=== PATIENT | male | born 2005 | race African-American/Black ===

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

== ENCOUNTER 2025-01-18 16:53 | Emergency (ER) | payer BC, SELFPAY ==
--- OUTSIDE RECORDS SUMMARY | 2017-09-26 05:10 | XMS_ITS | Encounter Summary ---
Author Organization [facility] Address [address] [place] [address] Care Team Providers Care Practice Architect Name Role Phone Dali Maddox MD Primary Care Provider + [phone] Encounter Details Date Type Department Care Team (Late st Contact Info) Description 09/26/2017 6:10 AM CDT Hospital Encounter [place] [facility] (File Room) [address] [address] Den Calero MD [address] [place], [place] [address] Social History Tobacco Use Types Packs/Day Years Used Date Smoking Tobacco: Never Smokeless Tobacco: Never Alcohol Use Standard Drinks/Week Comments Not Currently 0 (1 standard drink = 0.6 oz pur e alcohol) rarely Social Connection and Isolat ion Panel [NHANES] Answer Date Recorded In a typical week, how many times do you talk on the phone with family, friends, or neighbors? More than three times a week 04/08/2020 Frequency of Social Gatherin gs with Friends and Family Not on file 04/08/2020 Attends Jainism Services Not on file 04/08 Active Member of Clubs or Organizations Not on f ile 04/08/2020 Attends Club or Organization Meetings Not on jose l e 04/08/2020 Marital Status Not on file 04/08/2020 PHQ-2 Answer Date Recorded PHQ-2 Score 0 09/23/2023 [facility] [place] of Occupat ional Health - Occupational Stress Questionnaire Answer Date Recorded Do you feel stress - tense, restless, nervous, or anxious, or unable to sleep at night because your mind is troubled all the time - these days? Not at all 04/08/2020 Exercise Vital Sign Answer Date Recorde d On average, how many days pe r week do you engage in moderate to strenuous exercise (like a brisk walk)? 3 days 04/08/2020 On average, how many minutes do you engage in exercise at this level? 30 min 04/08/2020 Sex and Gender Information Value Date Recorded Sex Assigned at Male 06/01/2020 7:22 AM CDT Gender Identity Male 06/01/2020 7:21 AM CDT Sexual Orientation Choose not to disclose 2020 7:21 AM CDT COVID-19 Exposure Response Date Recorded In the last 10 days, have yo u been in contact with someone who was confirmed or suspected to have Coronavirus/COVID-19? No / Unsure 07/30/2022 2:53 PM CDT documented as of this encounter Plan of Treatment Not on file documented as of this encounter Visit Diagnoses Not on filedocumented in this encounter Care Teams Practice Architect Relationship Specialty Start Date End Date Dali Maddox MD [address] [place] [address] PCP - General Family Practice 01/13/14 07/20/23 documented as of this encounter
--- OUTSIDE RECORDS SUMMARY | 2017-09-26 05:10 | XMS_ITS | Encounter Summary ---
Author Organization [facility] Address [address] [place] [address] Care Team Providers Care Drafter Patent Name Role Phone Dali Maddox MD Primary Care Provider + [phone] Encounter Details Date Type Department Care Team (Late st Contact Info) Description 09/26/2017 6:10 AM CDT Hospital Encounter [place] [facility] (File Room) [address] [address] Den Calero MD [address] [place], [place] [address] Social History Tobacco Use Types Packs/Day Years [...] and Family Not on file 04/08/2020 Attends Voodoo Services Not on file 04/08 Active Member of Clubs or Organizations Not on f ile 04/08/2020 Attends Club or Organization Meetings Not on jose l e 04/08/2020 Marital Status Not on file 04/08/2020 PHQ-2 Answer Date Recorded PHQ-2 Score 0 09/23/2023 [facility] [place] of Occupat ional Health - Occupational Stress [...] on filedocumented in this encounter Care Teams Drafter Patent Relationship Specialty Start Date End Date Dali Maddox MD [address] [place] [address] PCP - General Family Practice 01/13/14 07/20/23 documented as of this encounter
--- NOTE | ~2025-01-18 | XR_ITS ---
EXAMINATION: XR chest 1V DATE: 01/18/2025 17:53 INDICATION: Chest pain TECHNIQUE: A single frontal view of the chest was obtained. COMPARISON: None. FINDINGS: Heart size is normal. Lungs are clear of acute processes. IMPRESSION: 1. No acute findings in the limited portable AP chest. Reviewed, dictated and finalized at location T. ATAL NURSE
--- OUTSIDE RECORDS SUMMARY | 2025-01-18 15:30 | XMS_ITS | Encounter Summary ---
Author Organization [facility] Address [address] [place] [address] Care Team Providers Care Pneumatic Tool Repairer Name Role Phone Unknown, Notinfile Primary Care Provider Unavail able Reason for Referral * Consultation (Routine) - Pending Review Specialty Diagnoses / Procedures [facility]erred To Contact Cardiology Diagnoses Other chest pain Lizzy Figueredo NP [address] [facility] [address] [place] [address] Phone: tel: [facility] Cardiology at [address] [place] [address] Phone: tel: fax: Referral ID Status Reason Start Date Expiration Date Visits Requested Visits Authorized [id number] Pending Review Specialty Services Required 01/18/2025 02/17/2026 1 1 Question Answer Please select the performing region: [facility] [[id number]] Please select the performing department: [facility] [[id number]] # of visits: 1 LATHER * Cardiology (Routine) - Authorized Specialty Diagnoses / Procedures Referred By Contac t Referred To Contact Diagnoses Other chest pain Procedures ECG 12 lead Lizzy Figueredo NP [facility] [facility] [address] [place] [address] Phone: tel: [facility] Referral ID Status Reason Start Date Expiration Date V isits Requested Visits Authorized [id number] Authorized 01/18/2025 02/17/2026 1 1 LATHER Reason for Visit * Reason Comments Hiccups Consistent hiccups x 1 month starting more recently chest has been starting to hurt with them and earlier this morning had gotten dizzy and nausea from the hiccups Encounter Details Date Type Department Care Team (Late st Contact Info) Description 01/18/2025 3:30 PM WOOD LATHER Office Visit [facility] Convenient Care at [place] [address] [place] [address] Lizzy Figueredo NP [address] [facility] [address] [place] [address] Hiccups (Primary Dx); Other chest pain; Dizziness Social History Tobacco Use Types Packs/Day Years Used Date Smoking Tobacco: Never Assessed Sex and Gender Information Value Date Recorded Sex Assigned at Not on file Legal Sex Male 8:00 AM WOOD LATHER Gender Identity Not on file Sexual Orientation Not on file documented as of this encounter Last Filed Vital Signs Vital Sign Reading Time Taken Comments Blood Pressure 139/84 01/18/2025 3:27 PM WOOD LATHER Pulse 83 01/18/2025 3:27 PM WOOD LATHER Temperature 37.1 C (98.8 F) 01/18/2025 3:27 PM WOOD LATHER Respiratory Rate 18 01/18/2025 3:27 PM WOOD LATHER Oxygen Saturation 98% 01/18/2025 3:27 PM WOOD LATHER Inhaled Oxygen Concentration - - Weight 94.8 kg (209 lb) 01/18/2025 3:27 PM WOOD LATHER Height 190.5 cm (6' 3) 01/18/2025 3:27 PM WOOD LATHER Body Mass Index 26.12 01/18/2025 3:27 PM WOOD LATHER documented in this encounter Patient Instructions * Patient Instructions* Lizzy Figueredo NP - 01/18/2025 3:30 PM WOOD LATHER --Sending patient to ER for further cardiac workup given symptoms of left-sided chest pain and dizziness. LATHER * Attachments The following attachments cannot be sent through Care Everywhere. * Hiccups (General Information) (Green[place]ic) documented in this encounter Progress Notes * Lizzy Figueredo NP - 01/18/2025 3:30 PM CST Images from the original note were not included. Subjective/Objective Patient ID: Jorgito Breen is a 19 y.o. male. This patient has verbally consented to recording this visit in order to utilize AI technology in generating this note. Chief Complaint Hiccups (Consistent hiccups x 1 month starting more recently chest has been starting to hurt with them and earlier this morning had gotten dizzy and nausea from the hiccups ) History of Present Illness Jorgito Breen is a 19 year old male who presents with persistent hiccups, chest pain, and dizziness. He has been experiencing hiccups for the past month, occurring daily and sometimes several times per hour. The hiccups are described as sometimes being 'nonstop'. This is the first time he has experienced such persistent hiccups. In the past week, he has developed left sided chest pain that radiates to his back. The chest pain occurs both with and without hiccups. There have been no recent injuries, falls, or accidents that could have contributed to these symptoms. He has a history of a slower heart rate with frequent chestpains, evaluated last year with no serious condition identified. Today, he began experiencing dizziness, described as the sensation of the environment spinning. He also has a headache that started with the dizziness. He feels hot and has a sensation of possibly passing out, though he has not actually fainted. No vision changes, vomiting, or seizures. Review of Systems All other systems reviewed and are negative. Physical Exam Physical Exam Vitals reviewed. Constitutional: General: He is not in acute distress. Appearance: Normal appearance. He is ill-appearing. HENT: Head: Normocephalic. Mouth/Throat: Lips: [place]. Cardiovascular: Rate and Rhythm: Normal rate and regular rhythm. Heart sounds: Normal heart sounds. No murmur heard. Pulmonary: Effort: Pulmonary effort is normal. Breath sounds: Normal breath sounds. Skin: General: Skin is warm. Neurological: Mental Status: He is alert and oriented to person, place, and time. Psychiatric: Mood and Affect: Mood normal. Vitals: 01/18/25 1527 BP: 139/84 Pulse: 83 Resp: 18 Temp: 37.1 ??C (98.8 ??F) SpO2: 98% Weight: 94.8 kg (209 lb) Height: 190.5 cm (6' 3) No past medical history on file. No current outpatient medications on file. Allergies Allergen Reactions Grass Pollen Other (See comments) Peanut Other (See comments) Social History Tobacco Use Smoking status: None Smokeless tobacco: None Substance and Sexual Activity Drug use: None Sexual activity: None Alcohol Use: Not on file History reviewed. No pertinent surgical history. Procedures Assessment/Plan 1. Hiccups (Primary) 2. Other chest pain - ECG 12 lead - Ambulatory referral to Cardiology; Future 3. Dizziness Results EKG read by cardiology: Early repolarization within normal limits Assessment & Plan Persistent hiccups with associated chest pain, dizziness, and headache Persistent hiccups for one month with recent chest pain, dizziness, and headache. Differential includes cardiac etiology; further evaluation needed. - Performed EKG to assess baseline cardiac function. - Referred to ER for comprehensive evaluation, including blood work and further diagnostic testing. - Advised cooling measures to alleviate dizziness. - Provided water to maintain hydration. Education --Sending patient to ER for further cardiac workup given symptoms of left-sided chest pain and dizziness. Disposition Treatment plan including expectations, follow up, and return precautions discussed with patient/parent, verbalizes understanding. Medication dosage, use, and potential adverse reactions discussed with patient/parent. Advised to follow up with PCP if symptoms do not resolve as expected or sooner if condition worsens. Signs/symptoms warranting ER evaluation reviewed. Patient and/or guardian was given an opportunity to ask questions, questions answered. Lizzy Figueredo NP This office note has been partially dictated using [employer] software, and as a result portions of the record may have been created with this software. Occasional wrong-word or '[id number]' substitutions may have occurred due to the inherent limitations of voice recognition software. Read the chartcarefully and recognize, using context, where substitutions have occurred. LATHER documented in this encounter Plan of Treatment Scheduled Referrals Name Type Priority Associated Diagnoses Order Schedule Ambulatory referral to Cardiology Outpatient Referral Routine Other chest pain Expected: 02/01/2025 (Approximate), Expires: 01/18/2026 documented as of this encounter Procedures Procedure Name Priority Date/Time Associated Diagnosis Comments ECG 12-LEAD Routine 01/18/2025 3:46 PM WOOD LATHER Other chest pain documented in this encounter Results * ECG 12 lead (01/18/2025 3:46 PM WOOD LATHER) us Lizzy Figueredo FIELD AUTOMOBILE ADJUSTER ECG ORDERABLES Final Result documented in this encounter Visit Diagnoses Diagnosis Hiccups- Primary Other chest pain Dizziness Dizziness and giddiness documented in this encounter Care Teams Pneumatic Tool Repairer Relationship Specialty Start Date End Date Unknown, Notinfile PCP - General 03/04/24 documented as of this encounter
--- OUTSIDE RECORDS SUMMARY | 2025-01-18 15:30 | XMS_ITS | Encounter Summary ---
Author Organization [facility] Address [address] [place] [address] Care Team Providers Care Scratch Finisher Name Role Phone Unknown, Notinfile Primary Care Provider Unavail able Reason for Referral * Consultation (Routine) - Pending Review Specialty Diagnoses / Procedures [facility] Referred To Contact Cardiology Diagnoses Other chest pain Lizzy Figueredo NP [address] [facility] [address] [place] [address] Phone: tel: [facility] Cardiology at [address] [place] [address] Phone: tel: fax: Referral ID Status Reason Start Date Expiration Date Visits Requested Visits Authorized [id number] Pending Review Specialty Services Required 01/18/2025 02/17/2026 1 1 Question Answer Please select the performing region: [facility] [[id number]] Please select the performing department: [facility] [[id number]] # of visits: 1 KER PRODUCT DESIGN * Cardiology (Routine) - Authorized Specialty Diagnoses / Procedures Referred By Contac t Referred To Contact Diagnoses Other chest pain Procedures ECG 12 lead Lizzy Figueredo NP [facility] [address] [place] [address] Phone: tel: [facility] Referral ID Status Reason Start Date Expiration Date V isits Requested Visits Authorized [id number] Authorized 01/18/2025 02/17/2026 1 1 KER PRODUCT DESIGN Reason for Visit * Reason Comments Hiccups Consistent hiccups x 1 month starting more recently chest has been starting to hurt with them and earlier this morning had gotten dizzy and nausea from the hiccups Encounter Details Date Type Department Care Team (Late st Contact Info) Description 01/18/2025 3:30 PM CHECKER PRODUCT DESIGN Office Visit [facility] Convenient Care at [place] [id number] [place] [address] Lizzy Figueredo NP [address] [facility] [address] [place] [address] Hiccups (Primary Dx); Other chest pain; Dizziness Social History Tobacco Use Types Packs/Day Years Used Date Smoking Tobacco: Never Assessed Sex and Gender Information Value Date Recorded Sex Assigned at Not on file Legal Sex Male 8:00 AM CHECKER PRODUCT DESIGN Gender Identity Not on file Sexual Orientation Not on file documented as of this encounter Last Filed Vital Signs Vital Sign Reading Time Taken Comments Blood Pressure 139/84 01/18/2025 3:27 PM CHECKER PRODUCT DESIGN Pulse 83 01/18/2025 3:27 PM CHECKER PRODUCT DESIGN Temperature 37.1 C (98.8 F) 01/18/2025 3:27 PM CHECKER PRODUCT DESIGN Respiratory Rate 18 01/18/2025 3:27 PM CHECKER PRODUCT DESIGN Oxygen Saturation 98% 01/18/2025 3:27 PM CHECKER PRODUCT DESIGN Inhaled Oxygen Concentration - - Weight 94.8 kg (209 lb) 01/18/2025 3:27 PM CHECKER PRODUCT DESIGN Height 190.5 cm (6' 3) 01/18/2025 3:27 PM CHECKER PRODUCT DESIGN Body Mass Index 26.12 01/18/2025 3:27 PM CHECKER PRODUCT DESIGN documented in this encounter Patient Instructions * Patient Instructions* Lizzy Figueredo NP - 01/18/2025 3:30 PM CHECKER PRODUCT DESIGN --Sending patient to ER for further cardiac workup given symptoms of left-sided chest pain and dizziness. KER PRODUCT DESIGN * Attachments The following attachments cannot be sent through Care Everywhere. * Hiccups (General Information) (Bengali) documented in this encounter Progress Notes * [...] is ill-appearing. HENT: Head: Normocephalic. Mouth/Throat: Lips: [place]. Cardiovascular: Rate and Rhythm: Normal rate and [...] office note has been partially dictated using [employer] software, and as a result portions of the record may have been created with this software. Occasional wrong-word or '[id number]' substitutions may have occurred due to the inherent limitations of voice recognition software. Read the chartcarefully and recognize, using context, where substitutions have occurred. KER PRODUCT DESIGN documented in this encounter Plan of Treatment Scheduled Referrals Name Type Priority Associated Diagnoses Order Schedule Ambulatory referral to Cardiology Outpatient Referral Routine Other chest pain Expected: 02/01/2025 (Approximate), Expires: 01/18/2026 documented as of this encounter Procedures Procedure Name Priority Date/Time Associated Diagnosis Comments ECG 12-LEAD Routine 01/18/2025 3:46 PM CHECKER PRODUCT DESIGN Other chest pain documented in this encounter Results * ECG 12 lead (01/18/2025 3:46 PM CHECKER PRODUCT DESIGN) us Lizzy Figueredo DESK SERGEANT ECG ORDERABLES Final Result documented in this encounter Visit Diagnoses Diagnosis Hiccups- Primary Other chest pain Dizziness Dizziness and giddiness documented in this encounter Care Teams Scratch Finisher Relationship Specialty Start Date End Date Unknown, Notinfile PCP - General 03/04/24 documented as of this encounter
--- NOTE | 2025-01-18 17:22 | ECG_ITS ---
Test Date: 2025-01-18 17:36:57 Measurements Intervals [place] Rate: 76 P: -4 AL: 152 QRS: -19 QRSD: 86 T: 8 QT: 321 QTc: 362 Interpretive Statements SINUS RHYTHM WITH SINUS ARRHYTHMIA ST ELEVATION IN ANTEROLAT/HIGH LAT LEADS- PROBABLY EARLY REPOLARIZATION BASELINE ARTIFACT- V3 BORDERLINE ECG Compared to ECG 03/04/2024 15:23:15 HEART RATE HAS INCREASED Electronically Signed On 01-18-2025 19:58:33 AVID EDITOR by Humza Ochoa D.O.
[2025-01-18 17:34] VITALS: BP 143/101; PULSE 78; RESP 20; TEMP 36.4; O2SAT 100
[2025-01-18 17:37] VITALS: O2SAT 100
--- OUTSIDE RECORDS SUMMARY | 2025-01-18 19:49 | XMS_ITS | Encounter Summary ---
Author Organization [facility] Address [address] [place] [address] Care Team Providers Care Practice Support Specialist Name Role Phone Dali Maddox MD Primary Care Provider + [phone] Yelena Mccoy APN Primary Care Provider + [phone] Encounter Details Date Type Department Care Team (Late st Contact Info) Description 02/02/2019 Scan [facility] Medical Records Department - [address], [address] Unknown Md, Referring <No scans attached> Social History Tobacco Use Types Packs/Day Years Used Date Smoking Tobacco: Never Smokeless Tobacco: Never Alcohol Use Standard Drinks/Week Comments No 0 (1 standard drink = 0.6 oz pur e alcohol) Sex and Gender Information Value Date Recorded Sex Assigned at Male 06/01/2020 7:22 AM CDT Gender Identity Male 06/01/2020 7:21 AM CDT Sexual Orientation Choose not to disclose 2020 7:21 AM CDT documented as of this encounter Plan of Treatment Not on file documented as of this encounter Visit Diagnoses Not on filedocumented in this encounter Care Teams Practice Support Specialist Relationship Specialty Start Date End Date Dali Maddox MD [address] [place] [address] PCP - General Family Practice 01/13/14 07/20/23 Yelena Mccoy APN [address] [place] [address] PCP - General Family Practice 07/21/23 documented as of this encounter
--- OUTSIDE RECORDS SUMMARY | 2025-01-18 19:49 | XMS_ITS | Clinical Summary ---
Author Organization [facility] Address [address] [place] [address] Care Team Providers Care Supervisor Machine Setter Name Role Phone Yelena Mccoy APN Primary Care Provider + [phone] Source Comments You are receiving this document as you are listed as the PCP, follow-upprovider, or the patient hasbeen referred to you for consultation. This is incompliance with [facility] Transitions of Care Requirement. Note: Specific treatmentrecords and notes about services for mental health, developmental disabilities,alcoholism, drug dependence, or substance abuse, you will need to contact theMedical Records Department at [phone] and complete a separate Release ofAuthorization form. They are also available to answer other questions.[facility] Allergies Active Allergy Reactions Criticality Noted Date Comments Peanut-Containing Drug Products 04/2013 Environmental 07/08/2014 Medications * Please verify all current medications with the patient. Medication Sig Dispensed Refills Start Date End Date Status fluticasone (FLONASE) 50 MCG/ACT nasal sprayIndications:Acu te seasonal allergic rhinitis place 2 Sprays into both nostrils daily. 1 g 07/30/2022 Active Additional Information Patient not taking.Reported on 07/12/2023 Active Problems Problem Noted Date Diagnosed Date Throat pain in adult 07/30/2022 Tibial plateau fracture, right, closed, initial encounter 11/16/2017 Well child check 06/20/2016 Learning difficulty 08/26/2015 Seasonal allergies Immunizations Name Administration Dates Next Due Covid-19 (Pfizer) Dilution R equired (Purple Cap) 02/25/2021,06/23/2020,06/02/2020 DTaP (Daptacel) < 7 yr old 2004 DTaP (Daptacel) <7 yrs (Inactive) 2008,03/09/2006,2004,10/14,2004 DTaP (Unspecified) 07/19/2008, 7,2004,10/14 HIB (Unspecified) 03/09/2006, 5,2004,10/14,2004 HPV9 Valent (Gardasil 9) 06/26/2017,12/24/2016 Hep A (Pediatrics) 08/25/2015,07/28/2009 Hep A (Unspecified) 07/28/2009 Hepatitis B (Unspecified) 04/05/2005,2004, 2004 Hepatitis B Peds & Adolescents 04/05/2005,2004,2004 IPV (Polio) 07/28/2009, 7,2004,09/07 Influenza (Flulaval) Quadriv alent 0.5 mL (Vial) 12/24/2016 Influenza (Flumist) Quad Kalpana e Intranasal (2-17 yrs) 01/05/2015 Influenza (Fluzone / Fluarix / Flulaval / Afluria) Quad 0.5mL >6mon 02/09/2022,12/06/2020,12/02/2015 Influenza (Fluzone) Quad 0.5mL 02/02/2019,2017 Influenza (Unspecified) 01/13/2014 MMR 07/19/2008,09/10/2005 Meningococcal B OMV (Bexsero) 02/09/2022 Meningococcal MCV4P (Menactra) 12/06/2020,2015 Pneumococcal Conjugate PCV7 09/10/2005,1 2004,2004,09/07 Tdap (Boostrix) 08/25/2015 Varicella 12/02/2015,06/07/2005 Family History Medical History Relation Comments No Known Problems Father Stroke Maternal Grandfather No Known Problems Maternal Grandmother anxiety Maternal Uncle 1 cardiac, required ablasian i n heart for constant syncope in adolescence Maternal Uncle 1 Cancer Maternal Uncle 2 No Known Problems Mother Diabetes Paternal Grandfather [place] Paternal Grandfather No Known Problems Paternal Grandmother Relation Status Comments Father Alive Maternal Grandfather 79, fr om complications from stroke 10 years prior Maternal Grandmother Alive Maternal Uncle 1 Alive Maternal Uncle 2 Alive Brain Cancer Mother Alive Paternal Grandfather 77, fr om [place] Paternal Grandmother Alive Sister Alive Social History Tobacco Use Types Packs/Day Years Used Date Smoking Tobacco: Never Smokeless Tobacco: Never Tobacco Cessation:Counseling Given: Not Answered Alcohol Use Standard Drinks/Week Comments Not Currently [...] and Family Not on file 04/08/2020 Attends Synagogue Services Not on file 04/08 Active Member of Clubs or Organizations Not on f ile 04/08/2020 Attends Club or Organization Meetings Not on jose l e 04/08/2020 Marital Status Not on file 04/08/2020 PHQ-2 Answer Date Recorded PHQ-2 Score 0 09/23/2023 [facility] Occupat ional Health - Occupational Stress [...] not to disclose 2020 7:21 AM CDT Last Filed Vital Signs Vital Sign Reading Time Taken Comments Blood Pressure 106/68 09/23/2023 1:05 PM CDT Pulse 62 09/23/2023 1:05 PM CDT Temperature 36.6 C (97.8 F) 09/23/2023 1:05 PM CDT Respiratory Rate 18 09/23/2023 1:05 PM CDT Oxygen Saturation 98% 09/23/2023 1:05 PM CDT Inhaled Oxygen Concentration - - Weight 95.3 kg (210 lb) 09/23/2023 1:05 PM CDT Height 188 cm (6' 2) 09/23/2023 1:05 PM CDT Body Mass Index 26.96 09/23/2023 1:05 PM CDT Plan of Treatment Health Maintenance Due Date Last Done Comments HIV SCREEN 06/01/2019 CHOL SCREENING: EVERY 5 YEARS 2024 ANNUAL BMI COUNSELING 09/22/2024 09/23/2023 , 02/09/2022, 12/06/2020, Additional history exists ANNUAL DEPRESSION SCREENING,ADULT 09/22/2024 09/23/2023, 02/09/2022, 12/06/2020, Additional history exists Covid-19 Vaccine ( season) 2024 02/25/2021, 06/23/2020, 06/02/2020 INFLUENZA VACCINE (#1) 2024 , 12/06/2020, 02/02/2019, Additional history exists ADULT VACCINE: TETANUS( TD) BOOSTER,EVERY 10 YR 08/24/2025 08/25/2015, 07/19/2008, 03/09/2006, Additional history exists ADULT VACCINE: SHINGRIX (1 of 2) 2054 PNEUMOCOCCAL VACCINE Aged Out 09/10/2005, 02/07/2005, 2004, Additional history exists No longer eligible based on patient's age to complete this topic VACCINE: HPV (CDC RULES) Completed 06/26/2017, 12/12 PEDS RSV < 20 MON Aged Out No longer eligible based on patient's age to complete this topic Care Teams Supervisor Machine Setter Relationship Specialty Start Date End Date Yelena Mccoy APN [address] [facility] [place] [address] PCP - General Family Practice 07/21/23
--- OUTSIDE RECORDS SUMMARY | 2025-01-18 19:49 | XMS_ITS | Encounter Summary ---
Author Organization [facility] Address [address] [place] [address] Care Team Providers Care Inorganic Chemistry Teacher Name Role Phone Dali Maddox MD Primary Care Provider + [phone] Yelena Mccoy APN Primary Care Provider + [phone] Encounter Details Date Type Department Care Team (Late st Contact Info) Description 11/28/2015 Scan [facility] [address] [facility], [address]nd [place] [phone] Dali Maddox MD [address] [place] [address] <No scans attached> Social History Tobacco Use Types Packs/Day Years Used Date Smoking Tobacco: Never Alcohol Use Standard Drinks/Week Comments [...] on filedocumented in this encounter Care Teams Inorganic Chemistry Teacher Relationship Specialty Start Date End Date Dali Maddox MD [address] [place] [address] PCP - General Family Practice 01/13/14 07/20/23 Yelena Mccoy APN [address] [place] [address] PCP - General Family Practice 07/21/23 documented as of this encounter
--- OUTSIDE RECORDS SUMMARY | 2025-01-18 19:50 | XMS_ITS | Clinical Summary ---
Author Organization [facility] Address [address] [place] [address] Care Team Providers Care Supervisor Felting Name Role Phone Pcp-Interviewed, Non [place] Pcp [facility] Primar y Care Provider Allergies Active Allergy Reactions Criticality Noted Date Comments Peanut Rash, not Hives/Urticaria 06/17/2012 Medications albuterol 90 mcg/actuation INHL Aero inhaler inhale 1-2 Puffs by mouth every 4 hours as needed for Wheezing. With aerochamber 1 Inhaler 0 3 Active Social History Tobacco Use Types Packs/Day Years Used Date Smoking Tobacco: Never Assessed Sex and Gender Information Value Date Recorded Sex Assigned at Not on file Legal Sex Male 10:20 PM CDT Gender Identity Not on file Sexual Orientation Not on file Last Filed Vital Signs Vital Sign Reading Time Taken Comments Blood Pressure - - Pulse 89 06/17/2012 10:26 PM CDT Temperature 37 C (98.6 F) 06/17/2012 10:26 PM CDT Respiratory Rate 20 06/17/2012 10:26 PM CDT Oxygen Saturation 95% 06/17/2012 10:26 PM CDT Inhaled Oxygen Concentration - - Weight 30.8 kg (68 lb) 06/17/2012 10:26 PM CDT Height - - Body Mass Index - - Plan of Treatment Health Maintenance Due Date Last Done Comments HIV Screening 2004 Hepatitis C Screening 2004 DTaP,Tdap and Td Vaccines (1 - Tdap) 06/01/2011 HPV Vaccines (1 - Male 3-dos e series) 06/01/2019 Meningococcal B (1 of 2 - Standard) 2020 COVID-19 Vaccine (1 - 2024-2 6 season) 2024 Influenza Vaccine (#1) 2024 Pneumococcal 7-64 Aged Out No longer eligible based on patient's age to complete this topic RSV Vaccine (Pediatric) Aged Out No l onger eligible based on patient's age to complete this topic Insurance quick[employer] quick[employer] Care Teams Supervisor Felting Relationship Specialty Start Date End Date Pcp-Interviewed, Non [place] Pcp [facility] [address] [facility] [place] [address] PCP - General 06/17/12
--- OUTSIDE RECORDS SUMMARY | 2025-01-18 19:50 | XMS_ITS | Encounter Summary ---
Author Organization [facility] Address [address] [place] [address] Care Team Providers Care Manufacturer'S Service Representative Name Role Phone Dali Maddox MD Primary Care Provider + [phone] Yelena Mccoy APN Primary Care Provider + [phone] Encounter Details Date Type Department Care Team (Late st Contact Info) Description 02/09/2022 Abstract [facility] [address] [facility], [address]nd [place] [phone] Dali Maddox MD [address] [place], [place] [id number] Social History Tobacco Use Types Packs/Day Years Used Date Smoking Tobacco: Never Smokeless Tobacco: Never Alcohol Use Standard Drinks/Week Comments No 0 (1 standard drink = 0.6 oz pur e alcohol) Social Connection and Isolat ion Panel [NHANES] Answer Date Recorded In a typical week, how many times do you talk on the phone with family, friends, or neighbors? More than three times a week 04/08/2020 Frequency of Social Gatherin gs with Friends and Family Not on file 04/08/2020 Attends Sabianist Services Not on file 04/08 Active Member of Clubs or Organizations Not on f ile 04/08/2020 Attends Club or Organization Meetings Not on jose l e 04/08/2020 Marital Status Not on file 04/08/2020 [facility] of Occupat ional Health - Occupational Stress [...] suspected to have Coronavirus/COVID-19? No / Unsure 02/09/2022 1:57 PM CASTING MACHINE OPERATOR documented as of this encounter Plan of Treatment Not on file documented as of this encounter Visit Diagnoses Not on filedocumented in this encounter Care Teams Manufacturer'S Service Representative Relationship Specialty Start Date End Date Dali Maddox MD [address] [place], [place] [address] PCP - General Family Practice 01/13/14 07/20/23 Yelena Mccoy APN [address] [place] [address] PCP - General Family Practice 07/21/23 documented as of this encounter
--- OUTSIDE RECORDS SUMMARY | 2025-01-18 19:50 | XMS_ITS | Clinical Summary ---
Author Organization [address] [address] Care Team Providers Care Firer Low Pressure Name Role Phone Unknown, Notinfile Primary Care Provider Unavail able Allergies Active Allergy Reactions Criticality Noted Date Comments Grass Pollen Other (See comments) Low 07/08/2014 Peanut Other (See comments) Low 01/13/2014 Medications No known medications Active Problems No known active problems Encounters Date Type Department Care Team Description 01/18/2025 3:30 PM BROADCAST OPERATIONS MANAGER Office Visit [facility] at [address] [address] Lizzy Figueredo NP Hiccups (Primary Dx); Other chest pain; Dizziness from Last 3 Months Social History Tobacco Use Types Packs/Day Years Used Date Smoking Tobacco: Never Assessed Sex and Gender Information Value Date Recorded Sex Assigned at Not on file Legal Sex Male 8:00 AM BROADCAST OPERATIONS MANAGER Gender Identity Not on file Sexual Orientation Not on file Last Filed Vital Signs Vital Sign Reading Time Taken Comments Blood Pressure 139/84 01/18/2025 3:27 PM BROADCAST OPERATIONS MANAGER Pulse 83 01/18/2025 3:27 PM BROADCAST OPERATIONS MANAGER Temperature 37.1 C (98.8 F) 01/18/2025 3:27 PM BROADCAST OPERATIONS MANAGER Respiratory Rate 18 01/18/2025 3:27 PM BROADCAST OPERATIONS MANAGER Oxygen Saturation 98% 01/18/2025 3:27 PM BROADCAST OPERATIONS MANAGER Inhaled Oxygen Concentration - - Weight 94.8 kg (209 lb) 01/18/2025 3:27 PM BROADCAST OPERATIONS MANAGER Height 190.5 cm (6' 3) 01/18/2025 3:27 PM BROADCAST OPERATIONS MANAGER Body Mass Index 26.12 01/18/2025 3:27 PM BROADCAST OPERATIONS MANAGER Plan of Treatment Health Maintenance Due Date Last Done Comments Depression Screening 2004 Hepatitis C Screening 2004 HPV Vaccines (1 - Male 3-dos e series) 06/01/2019 Regular Well Visit/Exam 18-64 2022 Meningococcal B Vaccine (2 o f 2 - Bexsero SCDM 2-dose series) 08/10/2022 02/09/2022 Covid-19 Vaccine (4 - 2024-2 6 season) 2024 02/25/2021, 06/23/2020, 06/02/2020 Influenza Vaccine (#1) 2024 , 12/06/2020, 02/02/2019, Additional history exists DTaP/Tdap/Td Vaccine (7 - Td or Tdap) 08/24/2025 08/25/2015, 07/19/2008, 03/09/2006, Additional history exists Hepatitis B Screening Completed 04/05/2005 , 2004, 2004 Pneumococcal vaccine <65 Completed 006, 02/07/2005, 2004, Additional history exists Varicella Vaccines Completed 12/02/2015, 06/07/2005 Meningococcal Vaccine Completed 12/06/2020, 016 Procedures Procedure Name Priority Date/Time Associated Diagnosis Comments ECG 12-LEAD Routine 01/18/2025 3:46 PM BROADCAST OPERATIONS MANAGER Other chest pain from Last 3 Months Results * ECG 12 lead (01/18/2025 3:46 PM BROADCAST OPERATIONS MANAGER) Lizzy Figueredo NP ECG ORDERABLES Final Result from Last 3 Months Insurance [facility] Care Teams Firer Low Pressure Relationship Specialty Start Date End Date Unknown, Notinfile PCP - General 03/04/24
--- OUTSIDE RECORDS SUMMARY | 2025-01-18 19:50 | XMS_ITS | Encounter Summary ---
Author Organization [facility] Address [address] [place] [address] Care Team Providers Care Compressor Operator Name Role Phone Asked, No Prov Designated Primary Care Provid er Unavailable Dali Maddox MD Primary Care Provider + [phone] Yelena Mccoy APN Primary Care Provider + [phone] Encounter Details Date Type Department Care Team (Late st Contact Info) Description 10/03/2013 Scan [facility] [address] [facility], 2nd [place] [address] Dali Maddox MD [address] [place] [address] <No scans attached> Social History [...] on filedocumented in this encounter Care Teams Compressor Operator Relationship Specialty Start Date End Date Asked, No Prov DesignatedMD PCP - General 09/28/13 Dali Maddox MD [address] [place] [address] PCP - General Family Practice 01/13/14 07/20/23 Yelena Mccoy APN [address] [place] [address] PCP - General Family Practice 07/21/23 documented as of this encounter
--- OUTSIDE RECORDS SUMMARY | 2025-01-18 19:51 | XMS_ITS | Encounter Summary ---
Author Organization [facility] Address [address] [place] [address] Care Team Providers Care School Curriculum Developer Name Role Phone Dali Maddox MD Primary Care Provider + [phone] Yelena Mccoy APN Primary Care Provider + [phone] Encounter Details Date Type Department Care Team (Late st Contact Info) Description 05/30/2015 Scan [facility] [address] [facility], [address]nd [place] [phone] Dali Maddox MD [address] [place] [address] <No scans attached> Social History [...] on filedocumented in this encounter Care Teams School Curriculum Developer Relationship Specialty Start Date End Date Dali Maddox MD [address] [place] [address] PCP - General Family Practice 01/13/14 07/20/23 Yelena Mccoy APN [address] [place] [address] PCP - General Family Practice 07/21/23 documented as of this encounter
--- OUTSIDE RECORDS SUMMARY | 2025-01-18 19:52 | XMS_ITS | Encounter Summary ---
Author Organization [facility] Address [address] [place] [address] Care Team Providers Care Account Assistant Name Role Phone Dali Maddox MD Primary Care Provider + [phone] Yelena Mccoy APN Primary Care Provider + [phone] Encounter Details Date Type Department Care Team (Late st Contact Info) Description 10/09/2018 Scan [facility] Medical Records Department - [address], [address] Dali Maddox MD [address] [place] [address] <No scans attached> Social History [...] on filedocumented in this encounter Care Teams Account Assistant Relationship Specialty Start Date End Date Dali Maddox MD [address] [place] [address] PCP - General Family Practice 01/13/14 07/20/23 Yelena Mccoy APN [address] [place] [address] PCP - General Family Practice 07/21/23 documented as of this encounter
--- OUTSIDE RECORDS SUMMARY | 2025-01-18 19:53 | XMS_ITS | Encounter Summary ---
Author Organization [facility] Address [address] [place] [address] Care Team Providers Care Home Companion Name Role Phone Dali Maddox MD Primary Care Provider + [phone] Yelena Mccoy APN Primary Care Provider + [phone] Encounter Details Date Type Department Care Team (Late st Contact Info) Description 10/09/2018 Scan [facility] [address] [facility], [address]nd [place] [address] Dali Maddox MD [address] [place] [address] <No scans attached> Social History [...] on filedocumented in this encounter Care Teams Home Companion Relationship Specialty Start Date End Date Dali Maddox MD [address] [place] [address] PCP - General Family Practice 01/13/14 07/20/23 Yelena Mccoy APN [address] [place] [address] PCP - General Family Practice 07/21/23 documented as of this encounter
[2025-01-18 20:15] VITALS: BP 122/66; PULSE 86; RESP 15; TEMP 36.7; O2SAT 100
--- OUTSIDE RECORDS SUMMARY | 2025-01-18 20:44 | XMS_ITS | Clinical Summary ---
Author Organization [facility] Address [address] [place] [address] Care Team Providers Care Wind Turbine Technician Name Role Phone Yelena Mccoy APN Primary Care Provider + [phone] Source Comments You are receiving this document as you are listed as the PCP, follow-upprovider, or the patient hasbeen referred to you for consultation. This is incompliance with [facility] Transitions of Care Requirement. Note: Specific treatmentrecords and notes about services for mental health, developmental disabilities,alcoholism, drug dependence, or substance abuse, you will need to contact theMedical Records Department at [phone] and complete a separate Release ofAuthorization form. They are also available to answer other questions.[facility] Allergies Active Allergy Reactions Criticality Noted Date [...] No Known Problems Mother Diabetes Paternal Grandfather [place] Paternal Grandfather No Known Problems Paternal Grandmother Relation Status Comments Father Alive Maternal Grandfather 79, fr om complications from stroke 10 years prior Maternal Grandmother Alive Maternal Uncle 1 Alive Maternal Uncle 2 Alive Brain Cancer Mother Alive Paternal Grandfather 77, fr om [place] Paternal Grandmother Alive Sister Alive Social History [...] and Family Not on file 04/08/2020 Attends Congregation Services Not on file 04/08 Active Member of Clubs or Organizations Not on f ile 04/08/2020 Attends Club or Organization Meetings Not on jose l e 04/08/2020 Marital Status Not on file 04/08/2020 PHQ-2 Answer Date Recorded PHQ-2 Score 0 09/23/2023 [facility] of Occupat ional Health - Occupational Stress [...] age to complete this topic Care Teams Wind Turbine Technician Relationship Specialty Start Date End Date Yelena Mccoy APN [address] [facility] [place] [address] PCP - General Family Practice 07/21/23
--- OUTSIDE RECORDS SUMMARY | 2025-01-18 20:44 | XMS_ITS | Encounter Summary ---
Author Organization [facility] Address [address] [place] [address] Care Team Providers Care Cambering Machine Operator Name Role Phone Dali Maddox MD Primary Care Provider + [phone] Yelena Mccoy APN Primary Care Provider + [phone] Encounter Details Date Type Department Care Team (Late st Contact Info) Description 02/02/2019 Scan [facility] Medical Records Department - [address], [address] Unknown Md, Referring <No scans attached> Social [...] on filedocumented in this encounter Care Teams Cambering Machine Operator Relationship Specialty Start Date End Date Dali Maddox MD [address] [place] [address] PCP - General Family Practice 01/13/14 07/20/23 Yelena Mccoy APN [address] [facility] [address] PCP - General Family Practice 07/21/23 documented as of this encounter
--- OUTSIDE RECORDS SUMMARY | 2025-01-18 20:44 | XMS_ITS | Encounter Summary ---
Author Organization [facility] Address [address] [place] [address] Care Team Providers Care Care Partner Name Role Phone Dali Maddox MD Primary Care Provider + [phone] Yelena Mccoy APN Primary Care Provider + [phone] Encounter Details Date Type Department Care Team (Late st Contact Info) Description 11/28/2015 Scan [facility] [address] [facility], 2nd [place] [phone] Dali Maddox MD [address] [place] [address] <No scans attached> Social History [...] on filedocumented in this encounter Care Teams Care Partner Relationship Specialty Start Date End Date Dali Maddox MD [address] [place] [address] PCP - General Family Practice 01/13/14 07/20/23 Yelena Mccoy APN [address] [place] [address] PCP - General Family Practice 07/21/23 documented as of this encounter
--- OUTSIDE RECORDS SUMMARY | 2025-01-18 20:45 | XMS_ITS | Encounter Summary ---
Author Organization [facility] Address [address] [place] [address] Care Team Providers Care Founding Partner Name Role Phone Dali Maddox MD Primary Care Provider + [phone] Yelena Mccoy APN Primary Care Provider + [phone] Encounter Details Date Type Department Care Team (Late st Contact Info) Description 02/09/2022 Abstract [facility] [address] [facility], [address]nd [place] [address] Dali Maddox MD [address] [place], [place] [address] Social History Tobacco Use Types Packs/Day Years [...] and Family Not on file 04/08/2020 Attends Mandaen Services Not on file 04/08 Active Member of Clubs or Organizations Not on f ile 04/08/2020 Attends Club or Organization Meetings Not on jose l e 04/08/2020 Marital Status Not on file 04/08/2020 [facility] of Occupat ional Health - Occupational [...] Coronavirus/COVID-19? No / Unsure 02/09/2022 1:57 PM DIRECTOR FOOD AND BEVERAGE documented as of this encounter Plan of Treatment Not on file documented as of this encounter Visit Diagnoses Not on filedocumented in this encounter Care Teams Founding Partner Relationship Specialty Start Date End Date Dali Maddox MD [address] [place], [place] [address] PCP - General Family Practice 01/13/14 07/20/23 Yelena Mccoy APN [address] [place] [address] PCP - General Family Practice 07/21/23 documented as of this encounter
--- OUTSIDE RECORDS SUMMARY | 2025-01-18 20:45 | XMS_ITS | Clinical Summary ---
Author Organization [facility] [employer] [facility] Address [address] [place] [address] Care Team Providers Care Quality Improvement Consultant Name Role Phone Unavailable Primary Care Provider Unavailabl e Social History Tobacco Use Types Packs/Day Years Used Date Smoking Tobacco: Never Assessed Sex and Gender Information Value Date Recorded Sex Assigned at Not on file Legal Sex Male 11:54 AM EST Gender Identity Not on file Sexual Orientation Not on file Plan of Treatment Not on file Medical Devices Not on file
--- OUTSIDE RECORDS SUMMARY | 2025-01-18 20:45 | XMS_ITS | Encounter Summary ---
Author Organization [facility] Address [address] [place] [address] Care Team Providers Care Title Specialist Name Role Phone Asked, No Prov Designated Primary Care Provid er Unavailable Dali Maddox MD Primary Care Provider + [phone] Yelena Mccoy APN Primary Care Provider + [phone] Encounter Details Date Type Department Care Team (Late st Contact Info) Description 10/03/2013 Scan [facility] [address] [facility], [address]nd [place] [address] Dali Maddox MD [address] [place] [address] <No scans attached> Social History [...] on filedocumented in this encounter Care Teams Title Specialist Relationship Specialty Start Date End Date Asked, No Prov DesignatedMD PCP - General 09/28/13 Dali Maddox MD [address] [place] [address] PCP - General Family Practice 01/13/14 07/20/23 Yelena Mccoy APN [address] [place] [address] PCP - General Family Practice 07/21/23 documented as of this encounter
--- OUTSIDE RECORDS SUMMARY | 2025-01-18 20:45 | XMS_ITS | Encounter Summary ---
Author Organization [facility] Address [address] [place] [address] Care Team Providers Care Director Of Strategic Partnerships Name Role Phone Dali Maddox MD Primary Care Provider + [phone] Yelena Mccoy APN Primary Care Provider + [phone] Encounter Details Date Type Department Care Team (Late st Contact Info) Description 05/30/2015 Scan [facility] [address] [facility], [address]nd [place] [id number] Dali Maddox MD [address] [place] [address] <No scans attached> Social History [...] on filedocumented in this encounter Care Teams Director Of Strategic Partnerships Relationship Specialty Start Date End Date Dali Maddox MD [address] [place] [address] PCP - General Family Practice 01/13/14 07/20/23 Yelena Mccoy APN [address] [place] [address] PCP - General Family Practice 07/21/23 documented as of this encounter
--- OUTSIDE RECORDS SUMMARY | 2025-01-18 20:45 | XMS_ITS | Clinical Summary ---
Author Organization [address] [address] Care Team Providers Care Meat Pumper Name Role Phone Unknown, Notinfile Primary Care Provider Unavail able Allergies Active Allergy Reactions Criticality Noted Date Comments Grass Pollen Other (See comments) Low 07/08/2014 Peanut Other (See comments) Low 01/13/2014 Medications No known medications Active Problems No known active problems Encounters Date Type Department Care Team Description 01/18/2025 3:30 PM HEALTH DATA ADMINISTRATOR Office Visit [facility] at [address] [address] Lizzy Figueredo NP Hiccups (Primary Dx); Other chest pain; Dizziness from Last 3 Months Social History Tobacco Use Types Packs/Day Years Used Date Smoking Tobacco: Never Assessed Sex and Gender Information Value Date Recorded Sex Assigned at Not on file Legal Sex Male 8:00 AM HEALTH DATA ADMINISTRATOR Gender Identity Not on file Sexual Orientation Not on file Last Filed Vital Signs Vital Sign Reading Time Taken Comments Blood Pressure 139/84 01/18/2025 3:27 PM HEALTH DATA ADMINISTRATOR Pulse 83 01/18/2025 3:27 PM HEALTH DATA ADMINISTRATOR Temperature 37.1 C (98.8 F) 01/18/2025 3:27 PM HEALTH DATA ADMINISTRATOR Respiratory Rate 18 01/18/2025 3:27 PM HEALTH DATA ADMINISTRATOR Oxygen Saturation 98% 01/18/2025 3:27 PM HEALTH DATA ADMINISTRATOR Inhaled Oxygen Concentration - - Weight 94.8 kg (209 lb) 01/18/2025 3:27 PM HEALTH DATA ADMINISTRATOR Height 190.5 cm (6' 3) 01/18/2025 3:27 PM HEALTH DATA ADMINISTRATOR Body Mass Index 26.12 01/18/2025 3:27 PM HEALTH DATA ADMINISTRATOR Plan of Treatment Health Maintenance Due Date [...] Comments ECG 12-LEAD Routine 01/18/2025 3:46 PM HEALTH DATA ADMINISTRATOR Other chest pain from Last 3 Months Results * ECG 12 lead (01/18/2025 3:46 PM HEALTH DATA ADMINISTRATOR) Lizzy Figueredo NP ECG ORDERABLES Final Result from Last 3 Months Insurance [facility] Care Teams Meat Pumper Relationship Specialty Start Date End Date Unknown, Notinfile PCP - General 03/04/24
--- OUTSIDE RECORDS SUMMARY | 2025-01-18 20:45 | XMS_ITS | Clinical Summary ---
Author Organization [facility] Address [address] [place] [address] Care Team Providers Care Screenplay Writer Name Role Phone Pcp-Interviewed, Non [place] [facility] Primar y Care Provider [...] patient's age to complete this topic Insurance [employer] Care Teams Screenplay Writer Relationship Specialty Start Date End Date Pcp-Interviewed, Non [place] [facility] [address] [facility] [place] [address] PCP - General 06/17/12
--- OUTSIDE RECORDS SUMMARY | 2025-01-18 20:46 | XMS_ITS | Encounter Summary ---
Author Organization [facility] Address [address] [place] [address] Care Team Providers Care Social Service Technician Name Role Phone Dali Maddox MD Primary Care Provider + [phone] eYlena Mccoy APN Primary Care Provider + [phone] Encounter Details Date Type Department Care Team (Late st Contact Info) Description 10/09/2018 Scan [facility] [address] [facility], [address] [place] [address] Dali Maddox MD [address] [place] [address] <No scans attached> Social History [...] on filedocumented in this encounter Care Teams Social Service Technician Relationship Specialty Start Date End Date Dali Maddox MD [address] [place] [address] PCP - General Family Practice 01/13/14 07/20/23 Yelena Mccoy APN [address] [place] [address] PCP - General Family Practice 07/21/23 documented as of this encounter
--- OUTSIDE RECORDS SUMMARY | 2025-01-18 20:46 | XMS_ITS | Encounter Summary ---
Author Organization [facility] Address [address] [place] [address] Care Team Providers Care District Plant Supervisor Name Role Phone Dali Maddox MD Primary Care Provider + [phone] Yelena Mccoy APN Primary Care Provider + [phone] Encounter Details Date Type Department Care Team (Late st Contact Info) Description 10/09/2018 Scan [facility] Medical Records Department - [address], [address] Dali Maddox MD [address] [place] [address] <No scans attached> Social History [...] on filedocumented in this encounter Care Teams District Plant Supervisor Relationship Specialty Start Date End Date Dali Maddox MD [address] [place] [address] PCP - General Family Practice 01/13/14 07/20/23 Yelena Mccoy APN [address] [place] [address] PCP - General Family Practice 07/21/23 documented as of this encounter
--- NOTE | 2025-01-18 21:31 | ED_ITS ---
HPI - Chest Pain General Chief Complaint: Chest Pain Stated Complaint: sharp chest pain on and off for 7 months Time Seen by Provider: 01/18/25 17:22 History of Present Illness HPI narrative: For months now, patient will intermittently have sharp chest pain, he thinks that may be related to his smoking. Had recently been seen at another hospital for the same and was given follow-up information for Cardiology. Related Data Allergies Allergy/AdvReac Type Severity Reaction Status Date / Time No Known Allergies Allergy Verified 01/18/25 17:38 Review of Systems Review of Systems: All systems reviewed & are unremarkable except as noted in HPI and below Exam Narrative: EXAMINATION OF ORGAN SYSTEMS/BODY AREAS: Constitutional: Vital signs per nursing GENERAL:[No acute distress, non-toxic appearing.] HEAD: Normal with no signs of head trauma. EYES: EOMI, conjunctiva normal ENT: Hearing grossly intact LUNGS: Nonlabored breathing. Diminished lung sounds bilaterally HEART: [Regular rate and rhythm] ABD: [Soft], [nontender to palpation] EXT: Normal range of motion SKIN: [No rashes or lesions.] NEURO: [Alert. No gross focal sensory or strength deficits.] PSYCH: Normal affect Course Vital Signs Vital signs: Vital Signs Temperature 97.6 F 01/18/25 17:34 Pulse Rate 78 01/18/25 17:34 Respiratory Rate 20 01/18/25 17:34 Blood Pressure 143/101 H 01/18/25 17:34 Pulse Oximetry 100 01/18/25 17:34 Oxygen Delivery Room Air 01/18/25 17:34 Temperature 98.1 F 01/18/25 20:15 Pulse Rate 86 01/18/25 20:15 Respiratory Rate 15 01/18/25 20:15 Blood Pressure 122/66 01/18/25 20:15 Pulse Oximetry 100 01/18/25 20:15 Oxygen Delivery Room Air 01/18/25 17:37 [facility] MDM Narrative Medical decision making narrative: Patient presenting here with chest pain, ongoing for a while. On exam patient is well-appearing in no distress lung sounds slightly diminished. I will obtain EKG and chest xray to rule out arrhythmia/ischemia, pneumothorax, or other cause of chest discomfort/shortness of breath. He is PERC negative. Chest x-ray on my independent interpretation does not show any acute abnormality, no pneumothorax or consolidation. EKG - 12-Lead: Performed at 1736. Interpreted by me. [Sinus rhythm]. Rate 76. [Normal] axis. MT-interval [normal]. QRS duration [normal]. QTc [normal]. [No ST segment elevation or depression]. [T-wave normal]. Impression: No EKG evidence of acute ischemia or dysrhythmia. I will provide prescription for albuterol and steroids, instructed patient to stop smoking, I do feel patient is stable for discharge home at this time with followup to their doctor, and return here if symptoms return or worsen. Agreeable to outpatient management. Differential Diagnosis Differential Diagnosis: arrhythmia/ischemia, pneumothorax, pneumonia, etc. Imaging Data Radiologist's impression: ITS Impressions Chest X-Ray 01/18/25 17:53 IMPRESSION: 1. No acute findings in the limited portable AP chest. Discharge Plan Discharge Clinical Impression: Atypical chest pain Patient Disposition: Home Condition: Stable Instructions: Chest Pain (ED) Additional Instructions: Try the medications as prescribed, please stop smoking, and follow-up with the scrap charger you were given information to. You can always return to the ER if your symptoms return or worsen. Patient Language: Bahraini Prescriptions: New prednisone 20 mg tablet 40 mg PO DAILY 5 Days Qty: 10 0RF albuterol sulfate 90 mcg/actuation HFA aerosol inhaler 2 puff inhalation QID PRN (Reason: shortness of breath or wheezing) Qty: 8.5 0RF No Action azithromycin 250 mg tablet See Rx Instructions .ROUTE .COMPLEX Qty: 6 0RF Rx Instructions: For 250 mg dose pack: take 500 mg today (day 1), then 250 mg for 4 days (days 2-5) benzonatate 100 mg capsule 100 mg PO TID PRN (Reason: cough) Qty: 14 0RF albuterol sulfate 90 mcg/actuation HFA aerosol inhaler 1 puff inhalation QID Qty: 6.7 0RF amoxicillin-pot clavulanate 875-125 mg tablet 1 tablet PO Q12H 7 Days Qty: 14 0RF Follow-up/Referrals: UNKNOWN,DOCTOR [Primary Care Provider]
== END 2025-01-18 20:40 | disposition home or self-care (01) ==
PROVIDERS: Emergency Provider Emergency Medicine
DX: R07.89 Other chest pain (principal)
CPT/HCPCS: 71045; 93005; 99283